=== PATIENT | male | born 1965 | race Caucasian/White ===

== ENCOUNTER 2022-09-27 09:40 | Outpatient (CLI) | payer BC | END 2022-09-27 09:41 | disposition home or self-care (01) | LOC: CSHMRI 09:40 | PROVIDERS: ATTEND Orthopaedic Surgery | DX: M75.102 Unspecified rotator cuff tear or rupture of left shoulder, not specified as traumatic (principal); M75.122 Complete rotator cuff tear or rupture of left shoulder, not specified as traumatic; M62.512 Muscle wasting and atrophy, not elsewhere classified, left shoulder; S43.432A Superior glenoid labrum lesion of left shoulder, initial encounter; M67.814 Other specified disorders of tendon, left shoulder ==